=== PATIENT | male | born 1985 ===

== ENCOUNTER 2020-06-23 15:44 | Emergency (ER) | payer SELFPAY ==
[2020-06-23 15:58] VITALS: BP 134/99
[2020-06-23] MEDS ORDERED: IBUPROFEN 600 MG TAB PO ONE (16:24)
[2020-06-23] MEDS ORDERED: ONDANSETRON 4 MG ODT TAB PO ONE ×2 (16:25→18:39)
--- NOTE | 2020-06-23 16:29 | Event Note ---
ED Screening Note ED Screening Note: Patient presents for headache, fever, cough, nasal congestion, rhinorrhea, nausea, vomiting that began 2 days ago Patient is febrile in triage 102, he has no tachycardia or hypotension, patient does not meet sepsis criteria at this time Patient has no meningeal signs and has full range of motion of the neck, do not suspect meningitis This initial assessment/diagnostic orders/clinical plan/treatment(s) is/are subject to change based on patients health status, clinical progression and re- assessment by fellow clinical providers in the ED. Further treatment and workup at subsequent clinical providers discretion. Patient/guardian urged not to elope from the ED as their condition may be serious if not clinically assessed and managed. Initial orders include: Labs, x-ray
[2020-06-23 16:34] LABS: Basophils % (Auto) 0.2 % (0.0-1.8); Lymphocytes # (Auto) 0.9 K/mm3 (1.2-5.4); Lymphocytes % (Auto) 15.2 % (13.4-35.0); Mean Corpuscular HGB Conc 36 % (32-34); Mean Corpuscular Volume 86 fl (84-94); Monocytes # (Auto) 0.3 K/mm3 (0.0-0.8); Monocytes % (Auto) 4.7 % (0.0-7.3); Platelet Count 164 K/mm3 (140-440); Red Blood Count 5.16 M/mm3 (3.65-5.03); Red Cell Distribution Width 12.7 % (13.2-15.2)
[2020-06-23 16:40] LABS: Hematocrit 44.4 % (35.5-45.6); Hemoglobin 15.8 gm/dl (11.8-15.2)
--- NOTE | 2020-06-23 16:42 | XRay Report ---
CHEST 1 VIEW 06/23/2020 4:10 PM INDICATION / CLINICAL INFORMATION: possible Sepsis. COMPARISON: None available. FINDINGS: SUPPORT DEVICES: None. HEART / MEDIASTINUM: No significant abnormality. LUNGS / PLEURA: Streaky bibasilar pulmonary opacities are noted. No pleural effusion. No pneumothorax . ADDITIONAL FINDINGS: No significant additional findings. IMPRESSION: 1. Streaky bibasilar pulmonary opacities could represent infectious process versus atelectasis. Clini linda correlation is needed. Signer Name: Kyle Camacho MD Signed: 06/23/2020 4:38 PM Workstation Name: [id number]
[2020-06-23 16:53] LABS: Alanine Aminotransferase 43 units/L (7-56); Blood Urea Nitrogen 13 mg/dL (9-20); Calcium 8.7 mg/dL (8.4-10.2); Hemolysis Index 6
[2020-06-23 16:59] LABS: BUN/Creatinine Ratio 19
[2020-06-23] MEDS ORDERED: KETOROLAC 30 MG/1 ML INJ IM ONE (18:10)
[2020-06-23] MEDS ORDERED: ACETAMINOPHEN 325 MG TAB PO ONE (18:10)
--- NOTE | 2020-06-23 18:19 | Emergency Department Report ---
ED General Adult HPI - General Chief complaint: Nausea/Vomiting/Diarrhea Stated complaint: NECK PAINS Time Seen by Provider: 06/23/20 16:20 Source: patient Mode of arrival: Ambulatory Limitations: No Limitations - History of Present Illness Initial comments: 35-year-old male without significant past medical history presents for evaluation of flulike symptoms. According to the patient about 2 to 3 days ago he developed flulike symptoms after being exposed to a coworker with similar symptoms. He reports headache, neck soreness, diffuse body aches, fever, chills, congestion, cough, nausea vomiting diarrhea. States symptoms began fairly abruptly and have been persistent. He denies any chest pain or shortness of breath. Denies any abdominal pain. Symptoms moderate, nothing makes better, nothing makes worse. resident surgeon Sen Ann interpreters ID number [id number] was utilized to aid in history and discussion of results today. - Related Data Previous Rx's Medication Instructions Recorded Last Taken Type Azithromycin [Zithromax Z-YOSI] 250 mg PO DAILY #6 tab 06/23/20 Unknown Rx Benzonatate 200 mg PO Q8H #20 capsule 06/23/20 Unknown Rx Ibuprofen [Motrin 600 MG tab] 600 mg PO Q8H PRN #21 tablet 06/23/20 Unknown Rx Ondansetron [Zofran Odt] 4 mg PO Q8HR #12 tab.rapdis 06/23/20 Unknown Rx Allergies Allergy/AdvReac Type Severity Reaction Status Date / Time No Known Allergies Allergy Unverified 06/23/20 15:53 ED Review of Systems ROS: Stated complaint: NECK PAINS Other details as noted in HPI Comment: All other systems reviewed and negative Constitutional: see HPI ENT: as per HPI ED Past Medical Hx - Past Medical History Previous Medical History?: No - Surgical History Past Surgical History?: No - Social History Smoking Status: Never Smoker - Medications Home Medications: Home Medications Medication Instructions Recorded Confirmed Last Taken Type Azithromycin [Zithromax Z-YOSI] 250 mg PO DAILY #6 tab 06/23/20 Unknown Rx Benzonatate 200 mg PO Q8H #20 capsule 06/23/20 Unknown Rx Ibuprofen [Motrin 600 MG tab] 600 mg PO Q8H PRN #21 tablet 06/23/20 Unknown Rx Ondansetron [Zofran Odt] 4 mg PO Q8HR #12 tab.rapdis 06/23/20 Unknown Rx ED Physical Exam - General Limitations: No Limitations General appearance: alert, in no apparent distress, other (Appears to not feel well but nontoxic) - Head Head exam: Present: atraumatic, normocephalic - Eye Eye exam: Present: normal appearance, PERRL, EOMI - ENT ENT exam: Present: normal exam, normal orophraynx, mucous membranes moist, TM's normal bilaterally - Neck Neck exam: Present: normal inspection, full ROM. Absent: tenderness, meningismus - Respiratory Respiratory exam: Present: normal lung sounds bilaterally. Absent: respiratory distress, wheezes, rales, rhonchi - Cardiovascular Cardiovascular Exam: Present: regular rate, normal rhythm. Absent: systolic murmur, diastolic murmur, rubs, gallop - GI/Abdominal GI/Abdominal exam: Present: soft, normal bowel sounds. Absent: tenderness - Rectal Rectal exam: Present: deferred - Extremities Exam Extremities exam: Present: normal inspection - Back Exam Back exam: Present: normal inspection - Neurological Exam Neurological exam: Present: alert, oriented X3 - Psychiatric Psychiatric exam: Present: normal affect, normal mood - Skin Skin exam: Present: warm, dry, intact, normal color. Absent: rash ED Course Vital Signs 06/23/20 15:56 Temperature 102.2 F H Pulse Rate 98 H Respiratory 20 Rate Blood Pressure 134/99 O2 Sat by Pulse 97 Oximetry ED Medical Decision Making - Lab Data Result diagrams: 06/23/20 16:13 06/23/20 16:13 - Radiology Data Radiology results: report reviewed Bibasilar infiltrate on two-view chest - Medical Decision Making 35-year-old male presenting with flulike symptoms over the past 3 days after being exposed to a coworker with similar illness. On my exam nontoxic, no distress, appears to not feel well, moist mucous membranes, normal ENT exam, clear lungs, normal heart sounds, benign abdomen. No meningeal signs to suggest meningitis. I suspect that the patient likely has COVID-19 given constellation of symptoms. His vital signs are stable however he is febrile. He will be given Tylenol for fever, Toradol for diffuse body aches and headache, Zofran for nausea. He is able to drink water here without emesis. His labs today are fairly benign. Chest x-ray shows bibasilar opacities, consider atelectasis versus infectious process. I have discussed need for quarantining, recommend that he seek COVID-19 testing and have advised on return precautions. O2 saturation 97% on room air, normal heart rate at this time. I do not feel the patient requires IV fluids or further evaluation. Return precautions were given. - Differential Diagnosis Viral syndrome including COVID-19, pneumonia, dehydration Critical care attestation.: If time is entered above; I have spent that time in minutes in the direct care of this critically ill patient, excluding procedure time. ED Disposition Clinical Impression: Suspected COVID-19 virus infection Disposition: TO HOME OR SELFCARE Is pt being admited?: No Condition: Good Instructions: COVID-19 Frequently Asked Questions, COVID-19 Prescriptions: Benzonatate 200 mg PO Q8H #20 capsule Ibuprofen [Motrin 600 MG tab] 600 mg PO Q8H PRN #21 tablet PRN Reason: Pain Azithromycin [Zithromax Z-YOSI] 250 mg PO DAILY #6 tab Ondansetron [Zofran Odt] 4 mg PO Q8HR #12 tab.christine Referrals: PRIMARY CARE, [Primary Care Provider] - 3-5 Days KENNY CRAVEN MD [Staff Physician] - 3-5 Days Time of Disposition: 18:20 Print Language: UGANDAN
== END 2020-06-23 18:40 | disposition home or self-care (01) ==
LOC: ED 15:44
DX: R50.9 Fever, unspecified (principal); Z79.899 Other long term (current) drug therapy; M54.2 Cervicalgia; R51.9 Headache, unspecified; Z79.1 Long term (current) use of non-steroidal anti-inflammatories (NSAID); Z79.2 Long term (current) use of antibiotics; Z20.822 Contact with and (suspected) exposure to COVID-19
CPT/HCPCS: 36415; 71045; 80053; 82140; 85025; 96372; 99283; J1885; Q0162

== ENCOUNTER 2020-12-17 15:53 | Emergency (ER) | payer SELFPAY ==
--- NOTE | 2020-12-17 16:19 | Event Note ---
ED Screening Note ED Screening Note: TESTICULAR PAIN; LEFT UNCIRCUM. NO DISCHARGE URINE NOTED IN UNDER GARMENT NO MASS/NODULE ON EXAM NO PALP HERNIA This initial assessment/diagnostic orders/clinical plan/treatment(s) is/are subject to change based on patients health status, clinical progression and re- assessment by fellow clinical providers in the ED. Further treatment and workup at subsequent clinical providers discretion. Patient/guardian urged not to elope from the ED as their condition may be serious if not clinically assessed and m anaged. Initial orders include: US UA
--- NOTE | 2020-12-17 17:03 | Ultrasound Report ---
ULTRASOUND SCROTUM INDICATION / CLINICAL INFORMATION: TESTICULAR PAIN. COMPARISON: None available. FINDINGS -- RIGHT TESTIS: Size = 5.0 x 2.7 x 3.7 cm. - Appearance: No significant abnormality. - Cyst or Mass: None. - Color Doppler Flow: No significant abnormality. EPIDIDYMIS: No significant abnormality. HYDROCELE: None. VARICOCELE: None demonstrated. FINDINGS -- LEFT TESTIS: Size = 4.8 x 2.7 x 3.6 cm. - Appearance: No significant abnormality. - Cyst or Mass: None. - Color Doppler Flow: No significant abnormality. EPIDIDYMIS: No significant abnormality. HYDROCELE: None. VARICOCELE: None demonstrated. ADDITIONAL FINDINGS: There is a tiny 1.8 cm subcutaneous lipoma in the area of concern in the left lo wer abdomen. IMPRESSION: 1. Normal appearance of the scrotum.. 2. Tiny subcutaneous lipoma in area of palpable abnormality in the left lower abdomen. Signer Name: Isaac Thornton MD Signed: 12/17/2020 4:59 PM Workstation Name: [id number]
--- NOTE | 2020-12-17 17:49 | Emergency Department Report ---
ED Male HPI - General Chief complaint: Urogenital-Male Stated complaint: LT UPPER LEG PAIN Time Seen by Provider: 12/17/20 16:18 Source: patient Mode of arrival: Ambulatory Limitations: No Limitations - History of Present Illness Initial comments: 35-year-old male presents to the ER today with complaints of discomfort in his left testicle/left groin area. States that he noticed it about 3 weeks ago. Is been intermittent in nature. Described as a pressure in his left testicle. 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 He denies any associated swelling, redness or any other skin discoloration. He denies any associated penile discharge, dysuria or any hematuria. He denies any low back pain, abdominal pain, fever or chills. He reports that he has the same sexual partner and is not concerned for STDs. MD Complaint: testicle pain, groin pain -: week(s) (3) - Related Data Previous Rx's Medication Instructions Recorded Last Taken Type Azithromycin [Zithromax Z-YOSI] 250 mg PO DAILY #6 tab 06/23/20 Unknown Rx Benzonatate 200 mg PO Q8H #20 capsule 06/23/20 Unknown Rx Ibuprofen [Motrin 600 MG tab] 600 mg PO Q8H PRN #21 tablet 06/23/20 Unknown Rx Ondansetron [Zofran Odt] 4 mg PO Q8HR #12 tab.rapdis 06/23/20 Unknown Rx Allergies Allergy/AdvReac Type Severity Reaction Status Date / Time No Known Allergies Allergy Verified 12/17/20 18:07 ED Review of Systems ROS: Stated complaint: LT UPPER LEG PAIN Other details as noted in HPI Comment: All other systems reviewed and negative Respiratory: denies: cough, shortness of breath, wheezing Cardiovascular: denies: chest pain, palpitations Gastrointestinal: denies: abdominal pain, nausea, diarrhea Genitourinary: testicular pain. denies: urgency, dysuria, frequency, hematuria, discharge, testicular mass Musculoskeletal: denies: back pain, joint swelling, arthralgia Skin: denies: rash, lesions Neurological: denies: headache, weakness, numbness, paresthesias, confusion, abnormal gait, vertigo Psychiatric: denies: anxiety, depression, auditory hallucinations, visual hallucinations, suicidal thoughts Hematological/Lymphatic: denies: easy bleeding, easy bruising, swollen glands ED Past Medical Hx - Social History Smoking Status: Never Smoker - Medications Home Medications: Home Medications Medication Instructions Recorded Confirmed Last Taken Type Azithromycin [Zithromax Z-YOSI] 250 mg PO DAILY #6 tab 06/23/20 Unknown Rx Benzonatate 200 mg PO Q8H #20 capsule 06/23/20 Unknown Rx Ibuprofen [Motrin 600 MG tab] 600 mg PO Q8H PRN #21 tablet 06/23/20 Unknown Rx Ondansetron [Zofran Odt] 4 mg PO Q8HR #12 tab.rapdis 06/23/20 Unknown Rx ED Physical Exam - General Limitations: No Limitations General appearance: alert, in no apparent distress - Head Head exam: Present: atraumatic, normocephalic, normal inspection - Eye Eye exam: Present: normal appearance, PERRL, EOMI Pupils: Present: normal accommodation - ENT ENT exam: Present: normal exam, mucous membranes moist, TM's normal bilaterally - Neck Neck exam: Present: normal inspection, full ROM - Respiratory Respiratory exam: Present: normal lung sounds bilaterally. Absent: respiratory distress, wheezes, rales, rhonchi - Cardiovascular Cardiovascular Exam: Present: regular rate, normal rhythm, normal heart sounds - GI/Abdominal GI/Abdominal exam: Present: soft. Absent: distended, tenderness, guarding, rebound - exam: Present: normal inspection, testicular tenderness (Mild on the left side), other (Supervisor [employer]ant present, Ms. Dread). Absent: urethral discharge, scrotal swelling, vertical testicular lie, circumcision External exam: Present: normal external exam, other (No inguinal hernia noted). Absent: erythema, swelling, lesions, lacerations, ecchymosis, bleeding - Extremities Exam Extremities exam: Present: normal inspection - Neurological Exam Neurological exam: Present: alert, oriented X3, CN II-XII intact, normal gait - Psychiatric Psychiatric exam: Present: normal affect, normal mood - Skin Skin exam: Present: intact ED Course Vital Signs 12/17/20 16:10 Temperature 97.6 F Pulse Rate 85 Respiratory 16 Rate Blood Pressure 132/82 [Right] O2 Sat by Pulse 97 Oximetry ED Medical Decision Making - Radiology Data Radiology results: report reviewed Patient: GAYLA CADE MR#: [id number] 99 : 1985 Acct:[id number] Age/Sex: 35 / M ADM Date: 12/17/20 Loc: ED Attending Dr: Ordering Physician: MICHEAL CANO Date of Service: 12/17/20 Procedure(s): US testicular doppler comp Accession Number(s): [id number] cc: MICHEAL CANO ULTRASOUND SCROTUM INDICATION / CLINICAL INFORMATION: TESTICULAR PAIN. COMPARISON: None available. FINDINGS -- RIGHT TESTIS: Size = 5.0 x 2.7 x 3.7 cm. - Appearance: No significant abnormality. - Cyst or Mass: None. - Color Doppler Flow: No significant abnormality. EPIDIDYMIS: No significant abnormality. HYDROCELE: None. VARICOCELE: None demonstrated. FINDINGS -- LEFT TESTIS: Size = 4.8 x 2.7 x 3.6 cm. - Appearance: No significant abnormality. - Cyst or Mass: None. - Color Doppler Flow: No significant abnormality. EPIDIDYMIS: No significant abnormality. HYDROCELE: None. VARICOCELE: None demonstrated. ADDITIONAL FINDINGS: There is a tiny 1.8 cm subcutaneous lipoma in the area of concern in the left lower abdomen. IMPRESSION: 1. Normal appearance of the scrotum.. 2. Tiny subcutaneous lipoma in area of palpable abnormality in the left lower abdomen. Signer Name: Isaac Thornton MD Signed: 12/17/2020 4:59 PM Workstation Name: [id number] Transcribed By: STACY Dictated By: Isaac Thornton MD Electronically Authenticated By: Isaac Thornton MD Signed Date/Time: 12/17/201658 DD/ 57 TD/TT: - Medical Decision Making 35-year-old male presents to the ER today with complaints of discomfort in his left testicle/left groin area. States that he noticed it about 3 weeks ago. Is been intermittent in nature. Described as a pressure in his left testicle. 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 He denies any associated swelling, redness or any other skin discoloration. He denies any associated penile discharge, dysuria or any hematuria. He denies any low back pain, abdominal pain, fever or chills. He reports that he has the same sexual partner and is not concerned for STDs. 1914: Ultrasound shows nothing acute. Urinalysis is normal. Physical exam shows no obvious inguinal hernia, testicular exam shows mild tenderness in the left testicle, but otherwise unremarkable. Patient denies penile discharge, and he states he has 1 sexual partner and is not concerned for STD. Patient is well-appearing, nontoxic, neurologically intact. He is in hemodynamically stable. He is not in any significant distress. Exact cause of his symptoms at this point unclear but he will be given referral to urologist for further evaluation. Discussed all results with patient. Informed him to follow-up with the urologist. Patient expressed understanding and agree with plan. Patient stable at time of discharge. Critical care attestation.: If time is entered above; I have spent that time in minutes in the direct care of this critically ill patient, excluding procedure time. ED Disposition Clinical Impression: Testicular discomfort Disposition: 01 HOME / SELF CARE / HOMELESS Is pt being admited?: No Does the pt Need Aspirin: No Condition: Stable Instructions: Testicular Self-Exam, Pain Without a Known Cause Additional Instructions: I recommend that you follow up with Urologist listed on your discharge instructions especially if your symptoms persist. You do not see that you have any inguinal hernias, but do recommend that you practice proper lifting techniques while at work to hopefully avoid developing any hernias. You can take Tylenol and ibuprofen as needed for pain. Return to the ER if your symptoms changes or worsens in any way. Referrals: SALVATORE HDZ MD [Staff Physician] - 3-5 Days (Urologist) Forms: Work/School Release Form(ED) Time of Disposition: 18:57
[2020-12-17 18:52] LABS: Bilirubin,Urine NEG (Negative); Blood,Urine NEG (Negative); Color,Urine Yellow (Yellow); Mucus,Urine FEW /HPF; Protein,Urine <15 mg/dL mg/dL (Negative); Urobilinogen,Urine < 2.0 mg/dL (<2.0)
[2020-12-17 18:56] LABS: RBC,Urine < 1.0 /HPF (0.0-6.0)
[2020-12-17 19:37] VITALS: BP 130/80
== END 2020-12-17 19:34 | disposition home or self-care (01) ==
LOC: ED 15:53
DX: N50.812 Left testicular pain (principal)
CPT/HCPCS: 81001; 93975; 99284